=== PATIENT | male | born 1995 | race Caucasian/White ===

== ENCOUNTER 2023-07-05 13:06 | Emergency (ER) | payer SELFPAY ==
[2023-07-05 13:12] VITALS: BP 142/99
[2023-07-05 13:30] LABS: % Basophils 0.4 % (0-2); % Eosinophils 3.8 % (0-6); % Immature Granulocytes 0.4 % (0-0.5); % Lymphocytes 21.8 % (20.5-51.1); % Neutrophils 65.6 % (42.2-75.2); Absolute Eosinophils 0.3 10^3/uL (0-0.7); Absolute Lymphocytes 1.7 10^3/uL (1.2-3.4); Absolute Monocytes 0.6 10^3/uL (0.1-0.6); Absolute Neutrophils 5.2 10^3/uL (1.4-6.5); Hematocrit 43.9 % (39.0-52.0); Hemoglobin 15.7 g/dL (13.0-18.0); Mean Corp Hgb Conc. 35.8 g/dL (33.0-37.0); Mean Corpuscular Hgb 28.9 pg (27.0-31.0); Mean Corpuscular Volume 80.8 fL (80.0-94.0); Mean Platelet Volume 11.8 fL (7.4-10.4); Nucleated Red Blood Cells % 0 % (-); Platelet Count 197 10^3/uL (130-400); Red Blood Cell Count 5.43 10^6/uL (4.70-6.10); White Blood Cell Count 7.9 10^3/uL (4.8-10.8)
[2023-07-05 13:46] LABS: ALT (SGPT) 83 U/L (0-50); AST (SGOT) 44 U/L (17-59); Albumin 4.6 g/dl (3.5-5.0); Alkaline Phosphatase 119 U/L (38-126); Blood Urea Nitrogen 17 mg/dl (9-20); Calcium 9.8 mg/dl (8.4-10.2); Carbon Dioxide 31 mmol/L (22-30); Chloride 103 mmol/L (98-107); Glucose 101 mg/dl (70-99); Potassium 4.3 mmol/L (3.5-5.1); Sodium 137 mmol/L (135-145); Total Bilirubin 0.8 mg/dl (0.2-1.3); Total Protein 7.5 g/dl (6.3-8.2); eGFR > 60.00
[2023-07-05] MEDS: BENADRYL 25 MG IV (15:43)
[2023-07-05] MEDS: REGLAN 10 MG IV (15:43)
[2023-07-05] MEDS: TORADOL 30 MG IV (15:43)
[2023-07-05] MEDS: NSS 1000 IV (15:43)
--- NOTE | 2023-07-05 16:31 | ED.GENMED ---
History of Present Illness
General
Chief Complaint: Headache
Source: patient and family
Exam Limitations: none
Time Seen by Provider: 07/05/23 15:25
Nursing documentation reviewed up to this point in time: agreed with
Travel History
Have you had any contact with someone who has COVID-19?: No
Do you have any symptoms of coronavirus? Fever > 100 degrees, chills, cough, shortness of breath, sore throat, loss of taste or smell, muscle aches, or headache?: No
History of Present Illness
History of Present Illness:
28-year-old male without significant past medical history presenting to the emergency department today with concerns of 1 month of headache and associated dizziness and lightheadedness over the past month denies any specific inciting events recent
changes in diet no chest pain shortness breath numbness weakness any recent illnesses. Does have a previous history of headaches but was never officially diagnosed with migraines. Multiple family members with history of migraines.
Past History
Past History
ED Past Medical History: None
ED Past Surgical History: None
Social History
Tobacco: Non-smoker
Alcohol: None
Drug: None
Living: with family
Review of Systems
Review of Systems
Allergies reviewed?: Yes
All Other Systems: ROS reviewed and negative except as documented in HPI and ROS
Phy Exam
Physical Exam
Physical Exam:
GENERAL: Alert , in no apparent distress
EYE: pupils equal and reactive
NECK: Supple, no significant adenopathy.
ENT: o/p clr, mmm.
CARDIAC: Regular rate and rhythm .
LUNGS: Clear breath sounds bilaterally, no acute respiratory distress, no wheezes/rales/rhonchi
ABDOMEN: Soft, without focal tenderness, no r/g, no cvat
NEUROLOGICAL: Alert and oriented, no focal neuro deficits 5-5 upper and lower extremity strength normal sensation were palpated bilaterally normal finger-nose and [id number] no pronator drift
SKIN: Warm and dry, skin intact.
MUSCULOSKELETAL: No edema, well perfused.
PSYCH: Normal and appropriate interaction.
Course
Orders/Labs/Results
Orders:
Orders
07/05/23 13:20
Complete Blood Count/With Diff Urgent
Comprehensive Metabolic Panel Urgent
07/05/23 15:36
CT Head W/o Iv Contrast Urgent
Comment:
Reason For Exam: 1 month haedache progressive
0.9% Sodium Chloride 1000 ml [Nss] 1,000 ml IV BOLUS
Diphenhydramine [Benadryl] 25 mg IV NOW STA
Ketorolac [Toradol] 30 mg IV NOW STA
Metoclopramide [Reglan] 10 mg IV NOW STA
07/05/23 15:48
EKG [Electrocardiogram (*1)] Urgent
Reason for Study: Fatigue / Weakness
07/05/23 15:49
EKG- Treatment ONCE
Abnormal Lab Results
07/05/23
13:20
MPV 11.8 H fL
(7.4-10.4)
Carbon Dioxide 31 H mmol/L
(22-30)
Glucose 101 H mg/dl
(70-99)
ALT 83 H U/L
(0-50)
07/05/23 13:20
07/05/23 13:20
Vital Signs
Initial and Last Documented VS:
Initial Vital Signs
Temp Pulse Resp BP Pulse Ox
98.2 F 94 18 142/99 99
07/05/23 13:12 07/05/23 13:12 07/05/23 13:12 07/05/23 13:12 07/05/23 13:12
Last Documented Vital Signs
Temp Pulse Resp BP Pulse Ox
98.2 F 88 18 122/82 98
07/05/23 13:12 07/05/23 19:18 07/05/23 19:18 07/05/23 19:18 07/05/23 19:18
MDM/Problems Addressed
MDM/Problems Addressed:
28-year-old male presenting to the emergency department today with concerns of intermittent headache nausea lightheadedness over the past few weeks. Seen in urgent care and sent to the ER today. Here vital signs are normal patient well-appearing
no acute distress normal neurologic evaluation no neck pain no red flag symptoms of headache other than ongoing and persisting symptoms considering the longevity of symptoms plan for CT scan for further assessment otherwise he was given a migraine
cocktail and did have improvement of symptoms after receiving this. CT scan negative. Symptoms resolved prior to discharge stable for outpatient management given information for outpatient follow-up. Return precautions given.
*Critical Care Note
Total Time (30-74mins, 75-104mins- exclusive of procedures): Not Applicable
ED Attending Note
-
Portions of this chart may have been created with voice recognition software.� Occasional wrong word or��sound alike� substitutions may have occurred due to the inherent limitations of voice recognition software.
Discharge Plan
Departure
Patient Disposition: Home (Routine Discharge)
Date of Disposition: 07/05/23
Time of Disposition: 19:00
Patient with high blood pressure during this ER visit?: No
Condition: Good
Covid-19: Not Applicable
Discharge Problem:
Headache
Instructions: Migraines (DC), Headache, Adult (DC)
Prescriptions:
New
metoclopramide HCl [Reglan] 10 mg tablet
10 mg PO Q6H PRN (Reason: nausea and vomiting) Qty: 7 0RF
ibuprofen 600 mg tablet
600 mg PO Q6H PRN (Reason: Pain) Qty: 10 0RF
Referrals:
Gerber Jessica MD [Active] - Follow up in 5-7 days
NONE,* [Family Provider] -
Activity Restrictions/Additional Instructions:
You came to the emergency department today with concerns of headache. Here you had a normal CT scan. Please follow-up with neurology for ongoing symptoms. Return to the emergency department any worsening, new or concerning symptoms.
Interventions
Interventions:
*Risk Screen - Suicide Last Done: 07/05/23 13:12
*General Assessment Last Done: 07/05/23 13:12
*Neglect/Abuse Screening Last Done: 07/05/23 13:12
ED- Fall Risk Assessment Last Done: 07/05/23 16:14
*ED COVID-19 Vaccine History Last Done: 07/05/23 15:30
*Nursing Disposition Last Done: 07/05/23 19:19
ED- Neurological Assessment Last Done: 07/05/23 16:13
Discharge Date and Time
Discharge Date/Time: 07/05/23 19:20
[2023-07-05 17:20] VITALS: BP 132/86
[2023-07-05 19:18] VITALS: BP 122/82
== END 2023-07-05 19:20 | disposition home or self-care (01) ==
LOC: EMR 13:06
PROVIDERS: Student in an Organized Health Care Education/Training Program; EMERGENCY PHYSICIAN Emergency Medicine
DX: R51.9 Headache, unspecified (principal)
CPT/HCPCS: 99285; 96374; 96375 ×2; 96361; 70450; 80053; 85025; 93005